=== PATIENT | female | born 1995 | race Caucasian/White ===

== ENCOUNTER 2022-05-19 23:39 | Emergency (ER) | payer BC ==
[2022-05-20] MEDS ORDERED: Lorazepam 2 MG/ML VIAL ONE ×2 (00:43→03:16)
[2022-05-20] MEDS ORDERED: Ondansetron PF 4 MG/2 ML Vial ONE ×2 (00:44→02:52)
[2022-05-20 01:05] LABS: #Monocytes 0.1 10x3/uL (0.0-1.1); #Neutrophils 8.2 10x3/uL (1.5-8.4); %Basophils 0.2 % (0.0-2.0); %Eosinophils 0.2 % (0.0-6.0); %Lymphocytes 12.8 % (18.0-47.0); %Monocytes 0.5 % (0.0-10.0); %Neutrophils 85.9 % (40.0-75.0); Hemoglobin 12.6 g/dL (12.0-15.5); Mean Corpuscular HGB CONC 34.8 g/dL (32.0-36.0); Mean Corpuscular Hemoglobin 29.6 pg (27.0-33.0); Platelet Count 234 10x3/uL (150-450); RBC Distribution Width 13.1 % (11.5-14.5); Red Blood Cell (RBC) Count 4.26 10x6/uL (3.90-5.03); White Blood Cell (WBC) Count 9.6 10x3/uL (3.5-10.5)
[2022-05-20] MEDS ORDERED: Morphine 4 MG/ML VIAL ONE (01:11)
[2022-05-20 01:20] LABS: ALT (SGPT) 13 U/L (8-55); AST (SGOT) 12 U/L (5-34); Albumin 3.7 g/dL (3.5-5.0); Alkaline Phosphatase 53 U/L (40-110); Anion Gap 15 mmol/L (10-20); BUN (Urea Nitrogen) 17 mg/dL (7.0-18.7); Bilirubin, Total 0.3 mg/dL (0.2-1.2); CK (CPK) 21 U/L (29-168); Calc. Creatinine Clearance 0 mL/min (70-130); Carbon Dioxide 21 mmol/L (22-29); Chloride 107 mmol/L (98-107); Estimated GFR 69; Globulin 2.2 g/dL (2.4-3.5); Glucose 100 mg/dL (70-105); Magnesium 1.8 mg/dL (1.6-2.6); Potassium 3.2 mmol/L (3.5-5.1); Protein, Total 5.9 g/dL (6.0-8.3); Sodium 140 mmol/L (136-145)
[2022-05-20] MEDS ORDERED: Potassium Chloride 20 MEQ TAB ONE (01:32)
[2022-05-20] MEDS ORDERED: Ketorolac Tromethamine 30 MG/ML VIAL ONE (04:20)
== END 2022-05-20 04:45 | disposition home or self-care (01) ==
LOC: CSHERS 23:39
DX: R11.2 Nausea with vomiting, unspecified (principal); R20.2 Paresthesia of skin
CPT/HCPCS: 80053; 82550; 83735; 85025; 96361; 96374; 96375; 96376; J1885; J2060; J2270; J2405

== ENCOUNTER 2022-12-30 10:31 | Emergency (ER) | payer BC ==
[2022-12-30 11:22] LABS: #Eosinphils 0.2 10x3/uL (0.0-0.5); #Monocytes 0.6 10x3/uL (0.0-1.1); #Neutrophils 8.3 10x3/uL (1.5-8.4); %Basophils 0.4 % (0.0-2.0); %Eosinophils 1.4 % (0.0-6.0); %Monocytes 5.9 % (0.0-10.0); %Neutrophils 78.7 % (40.0-75.0); Hematocrit 39.2 % (34.9-44.5); Hemoglobin 13.7 g/dL (12.0-15.5); Mean Corpuscular HGB CONC 34.9 g/dL (32.0-36.0); Mean Corpuscular Hemoglobin 31.2 pg (27.0-33.0); Mean Corpuscular Volume 89.3 fl (81.6-98.3); Mean Platelet Volume 9.1 fl (7.4-10.4); Platelet Count 211 10x3/uL (150-450); RBC Distribution Width 13.1 % (11.5-14.5); Red Blood Cell (RBC) Count 4.39 10x6/uL (3.90-5.03); White Blood Cell (WBC) Count 10.5 10x3/uL (3.5-10.5)
[2022-12-30 11:37] LABS: ALT (SGPT) 25 U/L (8-55); AST (SGOT) 23 U/L (5-34); Albumin 3.8 g/dL (3.5-5.0); Alkaline Phosphatase 65 U/L (40-110); Anion Gap 14 mmol/L (10-20); BUN (Urea Nitrogen) 6 mg/dL (7.0-18.7); Bilirubin, Total 0.2 mg/dL (0.2-1.2); Calc. Creatinine Clearance 0 mL/min (70-130); Calcium 9.4 mg/dL (7.8-10.44); Carbon Dioxide 21 mmol/L (22-29); Chloride 107 mmol/L (98-107); Estimated GFR 125; Globulin 3.1 g/dL (2.4-3.5); Glucose 97 mg/dL (70-105); Magnesium 1.8 mg/dL (1.6-2.6); Protein, Total 6.9 g/dL (6.0-8.3); Sodium 138 mmol/L (136-145)
== END 2022-12-30 13:46 | disposition home or self-care (01) ==
LOC: CSHERS 10:31
DX: O99.891 Other specified diseases and conditions complicating pregnancy (principal); R00.0 Tachycardia, unspecified; O99.282 Endocrine, nutritional and metabolic diseases complicating pregnancy, second trimester; E86.0 Dehydration; Z3A.26 26 weeks gestation of pregnancy
CPT/HCPCS: 71045; 80053; 83735; 85025; 96360; 96361

== ENCOUNTER 2023-03-25 19:48 | Inpatient (IN) | payer BC ==
[2023-03-25 20:35] VITALS: BMI 31.1
[2023-03-25] MEDS ORDERED: Tranexamic Acid 1,000 MG/10 ML VIAL IVP PRN (21:11)
[2023-03-25] MEDS ORDERED: Calcium Gluc 4.6 MEQ/10 ML (100 MG/ML) SLOW IVP PRN (21:11)
[2023-03-25] MEDS ORDERED: hydrALAZINE 20 MG/ML VIAL SLOW IVP PRN (21:11)
[2023-03-25] MEDS ORDERED: Lidocaine 1% (PF) 30 ML VIAL SC PRN (21:11)
[2023-03-25] MEDS ORDERED: Misoprostol 200 MCG TAB PR PRN (21:11)
[2023-03-25] MEDS ORDERED: Lorazepam 2 MG/ML VIAL SLOW IVP PRN (21:11)
[2023-03-25] MEDS ORDERED: Promethazine HCl 25 MG/ML VIAL IM PRN (21:11)
[2023-03-25] MEDS ORDERED: Ibuprofen 800 MG TAB PO PRN (21:11)
[2023-03-25] MEDS ORDERED: Ondansetron PF 4 MG/2 ML Vial IVP PRN (21:11)
[2023-03-25] MEDS ORDERED: Oxytocin 30 units/NS 500 ML 500 ML IV SCH (21:15)
[2023-03-25] MEDS ORDERED: Carboprost 250 MCG/ML AMP IM PRN (21:32)
[2023-03-25 22:05] LABS: #Eosinphils 0.2 10x3/uL (0.0-0.5); #Monocytes 0.8 10x3/uL (0.0-1.1); #Neutrophils 7.5 10x3/uL (1.5-8.4); %Basophils 0.2 % (0.0-2.0); %Eosinophils 1.4 % (0.0-6.0); %Lymphocytes 17.8 % (18.0-47.0); %Monocytes 7.7 % (0.0-10.0); %Neutrophils 72.1 % (40.0-75.0); Hematocrit 36.7 % (34.9-44.5); Hemoglobin 13.1 g/dL (12.0-15.5); Mean Corpuscular HGB CONC 35.7 g/dL (32.0-36.0); Mean Platelet Volume 10.9 fl (7.4-10.4); Platelet Count 146 10x3/uL (150-450); Red Blood Cell (RBC) Count 4.22 10x6/uL (3.90-5.03); White Blood Cell (WBC) Count 10.4 10x3/uL (3.5-10.5)
[2023-03-25] MEDS: Misoprostol 100 MCG TAB VAG SCH (22:06)
[2023-03-25 22:28] LABS: ALT (SGPT) 14 U/L (8-55); AST (SGOT) 18 U/L (5-34); Albumin 3.1 g/dL (3.5-5.0); Alkaline Phosphatase 115 U/L (40-110); Anion Gap 14 mmol/L (10-20); BUN (Urea Nitrogen) 9 mg/dL (7.0-18.7); Bilirubin, Total 0.3 mg/dL (0.2-1.2); Calc. Creatinine Clearance 178 mL/min (70-130); Calcium 8.3 mg/dL (7.8-10.44); Carbon Dioxide 17 mmol/L (22-29); Chloride 111 mmol/L (98-107); Estimated GFR 123; Globulin 2.2 g/dL (2.4-3.5); Glucose 92 mg/dL (70-105); Protein, Total 5.3 g/dL (6.0-8.3); Sodium 138 mmol/L (136-145)
[2023-03-25 22:37] LABS: HBSAg Index 0.23 S/CO (0-0.99); Hep B Surf Ag - L&D Non-Reactive S/CO (NonReactive)
[2023-03-25 22:39] LABS: Syphilis Antibody Nonreactive (Nonreactive); Syphilis Antibody Index 0.05 S/CO (<1.00 Non-Reactive)
[2023-03-26] MEDS ORDERED: Lidocaine 1% (PF) 30 ML VIAL SC PRN (04:15)
[2023-03-26 04:34] LABS: Creatinine, Urine 109.44 mg/dL (47-110)
[2023-03-26] MEDS: Lactated Ringer's 1,000 ML IV SCH (05:17)
[2023-03-26] MEDS: Oxytocin 30 units/NS 500 ML 500 ML IV SCH (05:27)
[2023-03-26] MEDS: fentaNYL/Ropivacaine Epidural 100 ML ONE (09:32)
[2023-03-26] MEDS ORDERED: Moisturizing Cream (Eucerin) 113 GM JAR TOP PRN ×2 (09:36→21:23)
[2023-03-26] MEDS ORDERED: Ondansetron PF 4 MG/2 ML Vial IVP PRN ×4 (09:36→21:23)
[2023-03-26] MEDS ORDERED: ePHEDrine Sulfate 50 MG/10 ML VIAL SLOW IVP PRN (09:36)
[2023-03-26] MEDS ORDERED: diphenhydrAMINE 50 MG/ML VIAL IVP PRN ×3 (09:36→21:23)
[2023-03-26] MEDS ORDERED: Promethazine HCl 25 MG/ML VIAL IM PRN ×2 (09:36→21:23)
[2023-03-26] MEDS ORDERED: Acetaminophen 325 MG TAB PO PRN (09:36)
[2023-03-26] MEDS ORDERED: Naloxone HCl 0.4 mg/ml Vial IVP PRN ×4 (09:36→21:23)
[2023-03-26] MEDS ORDERED: Lactated Ringer's 500 ML IV PRN (09:36)
[2023-03-26] MEDS ORDERED: Communication Order-Pharmacy FS SCH ×3 (09:45→21:30)
[2023-03-26] MEDS: fentaNYL 2 mcg/Ropivacaine 0.2% Epidural 100 ML CADD EPIDURAL SCH (17:33)
[2023-03-26] MEDS ORDERED: Famotidine/PF 20 mg/2ml Vial SLOW IVP PRN (20:13)
[2023-03-26] MEDS ORDERED: Bicitra 30 ML UDCUP PO PRN (20:13)
[2023-03-26] MEDS ORDERED: CEFAZOLIN 2 GM in Sodium Chloride 0.9% 100 ML IVPB SCH (20:15)
[2023-03-26] MEDS ORDERED: Azithromycin 500 MG in Sodium Chloride 0.9% 250 ML 250 ML IVPB SCH (20:15)
[2023-03-26] MEDS ORDERED: Labetalol HCl 100 MG/20 ML VIAL SLOW IVP PRN (20:21)
[2023-03-26] MEDS ORDERED: fentaNYL 50 mcg/mL 1 mL Vial SLOW IVP PRN (21:23)
[2023-03-26] MEDS ORDERED: Promethazine HCl 25 MG SUPP PR PRN (21:23)
[2023-03-26] MEDS ORDERED: diphenhydrAMINE 25 MG CAP PO PRN (21:23)
[2023-03-26] MEDS ORDERED: Meperidine HCl/PF 25 MG (1 mL) VIAL SLOW IVP PRN (21:23)
[2023-03-26] MEDS ORDERED: Naloxone HCl 0.4 mg/ml Vial IV PRN ×2 (21:23)
[2023-03-26] MEDS ORDERED: diphenhydrAMINE 50 MG/ML VIAL IM PRN (21:23)
[2023-03-26] MEDS ORDERED: FENTANYL 500 MCG/10 ML VIAL 2,000 MCG in Sodium Chloride 0.9% 60 ML IV PRN (21:23)
[2023-03-26] MEDS: Ketorolac Tromethamine 30 MG (1 mL) VIAL IVP SCH (21:38)
[2023-03-26] MEDS: FENTANYL 500 MCG/10 ML VIAL 1,000 MCG in Sodium Chloride 0.9% 30 ML IV PRN (22:20)
[2023-03-27] MEDS ORDERED: Lanolin Ointment 7 GM TUBE TOP PRN (00:42)
[2023-03-27] MEDS ORDERED: hydrALAZINE 20 MG/ML VIAL SLOW IVP PRN (00:42)
[2023-03-27] MEDS ORDERED: Bisacodyl 10 MG SUPP PR PRN (00:42)
[2023-03-27] MEDS ORDERED: Misoprostol 200 MCG TAB PR PRN (00:42)
[2023-03-27] MEDS ORDERED: diphenhydrAMINE 25 MG CAP PO PRN (00:42)
[2023-03-27] MEDS ORDERED: Simethicone Chewable 80 MG TAB PO PRN (00:42)
[2023-03-27] MEDS: Promethazine HCl 25 MG/ML VIAL IM PRN (00:53)
[2023-03-27] MEDS: Dexmedetomidine 200 MCG/2 ML VIAL ONE (01:02)
[2023-03-27] MEDS: Morphine PF 10 MG/10 ML VIAL ONE (01:02)
[2023-03-27] MEDS: Lidocaine 2% MPF 10 ML AMP (For Epidural Use) ONE (01:03)
[2023-03-27] MEDS: CEFAZOLIN 2 GM VIAL ONE (01:03)
[2023-03-27] MEDS: Azithromycin 500 MG VIAL ONE ×2 (01:04→01:05)
[2023-03-27] MEDS: Ondansetron PF 4 MG/2 ML Vial ONE (01:04)
[2023-03-27] MEDS: SUCCINYLCHOLINE/SOD CL,ISO/PF 200 MG/10 ML SYRINGE FS ONE (01:05)
[2023-03-27] MEDS: PROPOFOL 20 ML ONE (01:05)
[2023-03-27] MEDS: Dexamethasone 4 mg/ml Vial ONE (01:05)
[2023-03-27] MEDS: Fentanyl 250 MCG/5 ML VIAL ONE (01:05)
[2023-03-27] MEDS: Tranexamic Acid 1,000 MG/10 ML VIAL ONE (01:05)
[2023-03-27] MEDS: fentaNYL 50 mcg/mL 1 mL Vial ONE (01:06)
[2023-03-27] MEDS: Docusate 100 MG CAP PO SCH ×2 (01:09→09:18)
[2023-03-27 04:51] LABS: Hematocrit 30.6 % (34.9-44.5); Hemoglobin 10.9 g/dL (12.0-15.5); Mean Corpuscular HGB CONC 35.6 g/dL (32.0-36.0); Mean Corpuscular Hemoglobin 31.1 pg (27.0-33.0); Mean Corpuscular Volume 87.4 fl (81.6-98.3); Mean Platelet Volume 10.9 fl (7.4-10.4); Platelet Count 153 10x3/uL (150-450); White Blood Cell (WBC) Count 20.3 10x3/uL (3.5-10.5)
[2023-03-27] MEDS: Ketorolac Tromethamine 30 MG (1 mL) VIAL IVP PRN (09:18)
[2023-03-27] MEDS: Prenatal Vitamin 1 TAB PO SCH (09:19)
[2023-03-27] MEDS ORDERED: Zolpidem Tartrate 5 MG TAB PO PRN (09:30)
[2023-03-27] MEDS ORDERED: HYDROcodone/Acetaminophen 5/325 mg Tablet PO PRN ×2 (09:30)
[2023-03-27] MEDS: Boostrix 0.5 ML (Tdap) VIAL (>/=7 yrs of age) IM ONE (15:08)
[2023-03-27] MEDS: Acetaminophen 500 MG TAB PO SCH (15:12)
[2023-03-27] MEDS: traMADol HCl 50 MG TAB PO SCH (15:13)
[2023-03-27] MEDS: traMADol HCl 50 MG TAB PO PRN (21:07)
[2023-03-27] MEDS: Ibuprofen 800 MG TAB PO SCH (21:07)
[2023-03-28] MEDS: traMADol HCl 50 MG TAB PO PRN (03:27)
[2023-03-28] MEDS: Acetaminophen 500 MG TAB PO SCH (23:58)
[2023-03-29 16:13] VITALS: BP 140/90; TEMP 98.3
== END 2023-03-29 17:26 | disposition home or self-care (01) | DRG 788 ==
LOC: CSHLD/OP 19:48 → CSHICU 21:11 → UNDOADMIN 03-26 01:00 → CSHICU 03-26 01:00 → CSHLD 03-26 01:17 → CSHPP 03-27 00:13 → CSHLD 03-27 00:13
PROVIDERS: ADMIT Obstetrics & Gynecology; ATTEND Obstetrics & Gynecology
PROC: 10D00Z1 Extraction of Products of Conception, Low, Open Approach (ICD-10-PCS; principal; 2023-03-26)
PROC: 10907ZC Drainage of Amniotic Fluid, Therapeutic from Products of Conception, Via Natural or Artificial Opening (ICD-10-PCS; 2023-03-26)
PROC: 3E0P7VZ Introduction of Hormone into Female Reproductive, Via Natural or Artificial Opening (ICD-10-PCS; 2023-03-26)
PROC: 3E033XZ Introduction of Vasopressor into Peripheral Vein, Percutaneous Approach (ICD-10-PCS; 2023-03-26)
DX: O13.4 Gestational [pregnancy-induced] hypertension without significant proteinuria, complicating childbirth (principal); O32.4XX0 Maternal care for high head at term, not applicable or unspecified; Z3A.38 38 weeks gestation of pregnancy; Z37.0 Single live birth; O36.63X0 Maternal care for excessive fetal growth, third trimester, not applicable or unspecified; O62.2 Other uterine inertia; Z91.040 Latex allergy status; Z91.010 Allergy to peanuts; Z91.048 Other nonmedicinal substance allergy status
CPT/HCPCS: 36415; 51702; 80053; 81001; 82570; 84156; 85025; 85027; 86780; 86850; 86900; 86901; 87086; 87340; 99284; 99285; J1100; J1885; J2270; J2274; J2405; J2550; J2590; J2704; J3010; J3490; J7120

== ENCOUNTER 2023-04-02 14:12 | Emergency (ER) | payer BC ==
[2023-04-02 15:49] LABS: #Eosinphils 0.2 10x3/uL (0.0-0.5); #Monocytes 0.5 10x3/uL (0.0-1.1); #Neutrophils 7.1 10x3/uL (1.5-8.4); %Basophils 0.3 % (0.0-2.0); %Eosinophils 1.9 % (0.0-6.0); %Lymphocytes 18.2 % (18.0-47.0); %Monocytes 5.2 % (0.0-10.0); %Neutrophils 73.4 % (40.0-75.0); Hematocrit 29.7 % (34.9-44.5); Hemoglobin 10.4 g/dL (12.0-15.5); Mean Corpuscular Hemoglobin 30.9 pg (27.0-33.0); Mean Corpuscular Volume 88.1 fl (81.6-98.3); Platelet Count 314 10x3/uL (150-450); RBC Distribution Width 13.4 % (11.5-14.5); Red Blood Cell (RBC) Count 3.37 10x6/uL (3.90-5.03); White Blood Cell (WBC) Count 9.6 10x3/uL (3.5-10.5)
[2023-04-02 16:04] LABS: ALT (SGPT) 22 U/L (8-55); AST (SGOT) 23 U/L (5-34); Albumin 3.8 g/dL (3.5-5.0); Alkaline Phosphatase 91 U/L (40-110); Anion Gap 15 mmol/L (10-20); BUN (Urea Nitrogen) 12 mg/dL (7.0-18.7); Bilirubin, Total 0.4 mg/dL (0.2-1.2); Calc. Creatinine Clearance 0 mL/min (70-130); Calcium 8.2 mg/dL (7.8-10.44); Carbon Dioxide 18 mmol/L (22-29); Chloride 111 mmol/L (98-107); Estimated GFR 99; Globulin 2.5 g/dL (2.4-3.5); Glucose 83 mg/dL (70-105); Protein, Total 6.3 g/dL (6.0-8.3); Sodium 140 mmol/L (136-145)
[2023-04-02 17:02] LABS: Bilirubin Neg (Negative); Blood, Urine 250 (Negative); Clarity Clear (Clear); Glucose, Urine (Dipstick) Normal (Negative); Ketone, Urine 5 mg/dL (Negative); Leukocyte Negative (Negative); Nitrite Negative (Negative); Protein, Urine (Dipstick) Negative (Neg-Trace); Specific Gravity, Urine 1.005 (1.005-1.030); Urobilinogen Normal mg/dL (Less than 2)
[2023-04-02 17:14] LABS: Bacteria/HPF Rare-Few HPF (None Seen); CAUTI Indications for Culture Pelvic or flank pain; Squamous Epithelial 0-3 HPF (0-3); Urine Culture Reflex No No; WBC/HPF 0-3 HPF (0-3)
[2023-04-02] MEDS ORDERED: NIFEdipine XL 30 MG ER.TAB ONE (18:09)
== END 2023-04-02 18:58 | disposition home or self-care (01) ==
LOC: CSHERS 14:12
DX: O72.1 Other immediate postpartum hemorrhage (principal); I10 Essential (primary) hypertension
CPT/HCPCS: 76856; 80053; 81001; 83615; 85025; 86850; 86900; 86901; 96360; 96361

== ENCOUNTER 2025-02-12 20:14 | Day surgery (SDC) | payer BC ==
[2025-02-12 21:01] VITALS: BMI 29.0
[2025-02-12] MEDS ORDERED: hydrALAZINE 20 MG/ML VIAL SLOW IVP PRN (21:15)
[2025-02-12] MEDS: Calcium Carbonate 500 MG ChewTAB PO PRN (21:30)
[2025-02-12 23:21] LABS: Glucose, Urine (Dipstick) Normal (Negative); Leukocyte Negative (Negative); Protein, Urine (Dipstick) 15 mg/dl (Neg-Trace); Specific Gravity, Urine 1.015 (1.005-1.030)
== END 2025-02-12 23:40 | disposition home or self-care (01) ==
LOC: CSHLD/OP 20:14
PROVIDERS: ATTEND Obstetrics & Gynecology
DX: O47.1 False labor at or after 37 completed weeks of gestation (principal); O09.523 Supervision of elderly multigravida, third trimester; Z3A.37 37 weeks gestation of pregnancy; Z67.40 Type O blood, Rh positive; Z91.040 Latex allergy status; Z91.010 Allergy to peanuts; Z91.0110 Allergy to milk products, unspecified; Z88.5 Allergy status to narcotic agent; Z91.09 Other allergy status, other than to drugs and biological substances; Z90.89 Acquired absence of other organs
CPT/HCPCS: 81003